=== PATIENT | male | born 1950 | race Caucasian/White ===

== ENCOUNTER 2019-03-10 08:40 | Day surgery (SDC) | payer MEDICARE, OTHER ==
[~2019-03-10] VITALS: Ht 175.3 cm; Wt 62.6 kg
[~2019-03-10 08:40] MED LIST: NO ACTIVE MEDS
[2019-03-10 10:25] VITALS: Ht 175.3 cm; Wt 62.6 kg
[2019-03-10 10:40] VITALS: BP 115/64; PULSE 59; RESP 16
[2019-03-10] MEDS ORDERED: FENTAnyl 50 MCG/ML VIAL ONE (10:49)
[2019-03-10] MEDS ORDERED: MIDAZOLAM 1 MG/ML 2 ML INJ ONE (10:49)
[2019-03-10] MEDS ORDERED: LIDOCAINE 2% (SDV) 5 ML INJ ONE (10:49)
[2019-03-10] MEDS ORDERED: PROPOFOL 40 ML ONE (10:49)
[2019-03-10] MEDS ORDERED: PROPOFOL 200 MG INJ ONE (10:49)
[2019-03-10 11:51] VITALS: BP 117/78; PULSE 51; RESP 18
== END 2019-03-10 11:40 | disposition home or self-care (01) ==
LOC: GIL 08:40
PROVIDERS: ATTEND Internal Medicine Gastroenterology
DX: Z12.11 Encounter for screening for malignant neoplasm of colon (principal); K64.8 Other hemorrhoids
CPT/HCPCS: G0121; J2250; J3010